=== PATIENT | female | born 1950 | race Caucasian/White ===

== ENCOUNTER → 2018-11-13 | Outpatient (CLI) | payer OTHER ==
[~2018-11-13] MED LIST: PHENERGAN 25 MG25 M1 PO
== END ==
LOC: RAD 12:42
DX: R10.11 Right upper quadrant pain (principal)

== ENCOUNTER → 2020-06-26 | Outpatient (CLI) | payer OTHER ==
[2020-06-26 08:58] LABS: CREATININE 0.7 mg/dL (0.6-1.0)
== END ==
LOC: BC 07:59
PROVIDERS: ATTEND Nurse Practitioner
DX: Z12.31 Encounter for screening mammogram for malignant neoplasm of breast (principal); M85.88 Other specified disorders of bone density and structure, other site; R51.9 Headache, unspecified; Z78.0 Asymptomatic menopausal state

== ENCOUNTER → 2020-10-20 | Outpatient (CLI) | payer OTHER ==
[2020-10-20 10:37] LABS: CREATININE 0.8 mg/dL (0.6-1.0)
== END ==
LOC: CAT 08:58 → LAB 08:58 → CAT 12:05
PROVIDERS: ATTEND Nurse Practitioner
DX: K63.89 Other specified diseases of intestine (principal); K59.00 Constipation, unspecified; M47.816 Spondylosis without myelopathy or radiculopathy, lumbar region; N85.8 Other specified noninflammatory disorders of uterus; I70.8 Atherosclerosis of other arteries